=== PATIENT | female | born 1970 | race Caucasian/White ===

== ENCOUNTER 2020-05-30 10:38 | Outpatient (CLI) | payer BC, SELFPAY ==
--- NOTE | ~2020-05-30 | MM_ITS ---
EXAMINATION: MM screening [facility] BI w mima HISTORY: Screening TECHNIQUE: Craniocaudal and mediolateral oblique 3-D tomosynthesis images were obtained and synthetic 2-D images were generated. CAD analysis was submitted and interpreted. COMPARISON: Comparison to multiple prior studies sequentially, with oldest reviewed study dated 11/08. BREAST PARENCHYMAL COMPOSITION: The breasts are heterogeneously dense, which may obscure small masses . FINDINGS: There is no evidence of suspicious mass, calcification, or architectural distortion to sugg est malignancy in either breast. There has been no suspicious interval change. IMPRESSION: 1. No mammographic evidence of malignancy. 2. Recommend routine screening mammography in one year. BI-RADS Category 1: Negative Reviewed, dictated and finalized at location A. E OPERATOR
== END 2020-05-30 10:39 | disposition home or self-care (01) ==
PROVIDERS: PCP Physician Assistant; Visit Provider Obstetrics & Gynecology
DX: Z12.31 Encounter for screening mammogram for malignant neoplasm of breast (principal)
CPT/HCPCS: 77063; 77067

== ENCOUNTER 2020-09-07 07:00 | Emergency (ER) | payer BC, SELFPAY ==
--- NOTE | ~2020-09-07 | XR_ITS ---
EXAMINATION: XR chest 2V DATE: 09/07/2020 07:28 INDICATION: Shortness of breath. Palpitations. TECHNIQUE: Frontal and lateral views of the chest were obtained. COMPARISON: Chest single view 07/16/2003 FINDINGS: The chest demonstrates clear lungs without pneumonia, pleural effusion, or pneumothorax. Th e heart size is normal. IMPRESSION: 1. No acute cardiopulmonary disease. Reviewed, dictated and finalized at location A.
[2020-09-07 07:02] VITALS: BP 134/79; PULSE 92; RESP 20; TEMP 36.7; O2SAT 100
--- NOTE | 2020-09-07 07:16 | ECG_ITS ---
Measurements Intervals [place] Rate: 82 P: 52 VT: 145 QRS: 9 QRSD: 98 T: 75 QT: 368 QTc: 431 Interpretive Statements SINUS RHYTHM BORDERLINE T WAVE ABNORMALITY- HIGH LATERAL LEADS BASELINE ARTIFACT- I, II, III, AVR, AVF, V3-V6 BORDERLINE ECG Electronically Signed On 09-07-2020 7:22:07 CDT by Vernon Olguin D.O.
--- NOTE | 2020-09-07 07:24 | PC.NURSE ---
Pt to XRAY via stretcher, pt on tele monitor.
[2020-09-07 07:27] LABS: Basophils Percent Auto 0.6 % (0.2-1.2); Eosinophils Absolute Auto 0.2 K/mm3 (0-0.3); Eosinophils Percent Auto 3.1 % (0-4.4); Hematocrit 41.5 % (37.0-47.0); Hemoglobin 13.7 g/dL (12.0-15.0); Immature Granulocyte Absolute 0.04 K/mm3 (0.00-0.031); Immature Granulocyte Percent A 0.6 % (0-0.5); Lymphocytes Absolute Auto 1.66 K/mm3 (0.9-3.2); Lymphocytes Percent Auto 23.5 % (18.3-44.2); Mean Corpuscular Hemoglobin 31.6 pg (26-34); Mean Corpuscular Volume 95.6 fl (80-100); Mean Platelet Volume 8.7 fl (7.4-10.4); Monocytes Absolute Auto 0.4 K/mm3 (0.1-0.6); Monocytes Percent Auto 6.1 % (2.6-8.5); Neutrophils Absolute Auto 4.7 K/mm3 (1.3-6.7); Neutrophils Percent Auto 66.1 % (45.5-73.1); Platelet Count Result 167 k/mm3 (150-375); Red Blood Count 4.34 M/mm3 (4.2-5.4); Red Cell Distribution Width 12.5 % (11.5-14.5); White Blood Count 7.1 K/mm3 (4.5-10.0)
--- NOTE | 2020-09-07 07:38 | ED.ARRPALP ---
HPI - Arrhythmia/Palpitations General Chief Complaint: Arrhythmia/Palpitations Stated Complaint: Rapid HR. 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 Patient was driving and her heart rate went up to 150 according to her iWatch. History of SVT, status post ablation years ago, patient currently had Holter monitor placed on August 12. Patient reports having similar symptoms 1 week ago, did not get any phone call from her plant protection supervisor. to see if the Holter monitor showed something or not. Currently patient is asymptomatic. History of anxiety, depression, hypothyroidism. Patient does not smoke or drink or uses drugs. Denies any fever, chills, nausea, vomiting, chest pain, shortness of breath, back pain or headache. Complaining of a lot of stress. Related Data Home Medications Medication Instructions Recorded Confirmed levothyroxine 09/07/20 lorazepam 09/07/20 Allergies Allergy/AdvReac Type Severity Reaction Status Date / Time No Known Allergies Allergy Verified 09/07/20 07:05 Review of Systems Review of Systems: Narrative: CONSTITUTIONAL: Denies fever, chills, or sweats. EYES: Denies visual changes, redness, or discharge. ENT: Denies rhinorrhea, congestion, sore throat, or otalgia. CARDIOVASCULAR: Denies chest pain, palpitations, or edema. RESPIRATORY: Denies cough or dyspnea. GASTROINTESTINAL: Denies abdominal pain, nausea, vomiting, or diarrhea. GENITOURINARY: Denies dysuria or hematuria. SKIN: Denies rash or itching. MUSCULOSKELETAL: Denies back pain, joint pain, or myalgia. NEUROLOGIC: Denies headache, numbness, or weakness. PSYCHIATRIC: Denies anxiety or depression. PMFSH Family History Family History Other Diabetes mellitus Family history of lung cancer Social History Social History Smoking end date: 04/11/96 Alcohol intake: current Exam Narrative: Exam Narrative: General appearance: Well-developed, well-nourished Skin: Normal color Head: Normocephalic, nontraumatic Eyes: Clear conjunctiva ENT: Oropharynx normal, ears normal, nose normal Neck: Supple, nontender Chest and respiratory: Airway patent, no respiratory distress, no accessory muscle use, Holter monitor , left chest Heart: Regular rate/rhythm Abdomen: Soft, nontender, no organomegaly, quiet bowel sounds Vascular: Normal peripheral pulses, normal capillary refill. Musculoskeletal: Normal range of motion, nontender back Neurologic: Alert and oriented ?3, [employer]ATE[employer] is normal as tested, no gross motor deficit Course Course Emergency Course: Resolved Vital Signs Vital signs: Vital Signs Temperature 36.7 C 09/07/20 07:02 Pulse Rate 92 09/07/20 07:02 Respiratory Rate 20 09/07/20 07:02 Blood Pressure 134/79 09/07/20 07:02 Pulse Oximetry 100 09/07/20 07:02 Temperature 36.7 C 09/07/20 07:02 Pulse Rate 68 09/07/20 09:11 Respiratory Rate 12 09/07/20 09:11 Blood Pressure 110/72 09/07/20 09:11 Pulse Oximetry 100 09/07/20 09:11 MDM - Arrhythmia/Palpitations MDM Narrative Medical decision making narrative: Patient presents with intermittent palpitation, currently having a Holter monitor, did not receive any phone call from her plant protection supervisor about the possibility of any arrhythmia. History of depression. Anxiety, panic attack is my concern. Labs, chest x-ray, EKG, TSH ordered. Further plan to follow Differential Diagnosis Dif
[2020-09-07 07:39] LABS: Anion Gap 8 mmol/L (8-16); Blood Urea Nitrogen 11 mg/dL (7-17); Calcium 9.3 mg/dL (8.4-10.2); Carbon Dioxide 27 mmol/L (22-30); Chloride 103 mmol/L (98-107); Estimated CRCL calculation 88 ml/min; Estimated Glomerular Filt Rate > 60; Glucose 103 mg/dL (65-105); Potassium 3.9 mmol/L (3.4-5.0); Sodium 138 mmol/L (137-145)
[2020-09-07 07:50] LABS: Troponin I < 0.012 ng/mL (0.000-0.034)
[2020-09-07 08:00] LABS: Prothrombin Time 13.2 Seconds (11.1-14.7)
[2020-09-07 08:02] LABS: Partial Thromboplastin Time 28.5 SECONDS (22.3-36.8)
[2020-09-07 08:07] VITALS: BP 131/80; PULSE 69; RESP 12; O2SAT 100
[2020-09-07 09:11] VITALS: BP 110/72; PULSE 68; RESP 12; O2SAT 100
[2020-09-07 09:49] VITALS: BP 110/69; PULSE 56; RESP 12; O2SAT 98
== END 2020-09-07 09:52 | disposition home or self-care (01) ==
PROVIDERS: Emergency Provider Emergency Medicine; PCP Physician Assistant
DX: R00.2 Palpitations (principal); F41.9 Anxiety disorder, unspecified; F32.9 Major depressive disorder, single episode, unspecified; E03.9 Hypothyroidism, unspecified; Z87.891 Personal history of nicotine dependence; R94.31 Abnormal electrocardiogram [ECG] [EKG]
CPT/HCPCS: 36415; 71046; 80048; 84443; 84484; 85025; 85610; 85730; 93005; 99284

== ENCOUNTER → 2021-09-10 12:49 | Outpatient (CLI) | payer BC, SELFPAY ==
--- NOTE | ~2021-09-10 | MM_ITS ---
EXAMINATION: MM screening on[facility] BI w mima HISTORY: Screening mammogram TECHNIQUE: Craniocaudal and mediolateral oblique 3-D tomosynthesis images were obtained and synthetic 2-D images were generated. CAD analysis was submitted and interpreted. COMPARISON: , 04/17/2019 bilateral screening mammogram examinations BREAST PARENCHYMAL COMPOSITION: There are scattered areas of fibroglandular density. FINDINGS: There is no evidence of suspicious mass, calcification, or architectural distortion to sugg est malignancy in either breast. There has been no suspicious interval change. IMPRESSION: 1. No mammographic evidence of malignancy. 2. Recommend routine screening mammography in one year. BI-RADS Category 1: Negative Reviewed, dictated and finalized at location A.
== END ==
PROVIDERS: PCP Physician Assistant; Visit Provider Obstetrics & Gynecology
DX: Z12.31 Encounter for screening mammogram for malignant neoplasm of breast (principal)
CPT/HCPCS: 77063; 77067

== ENCOUNTER 2023-06-16 01:23 | Day surgery (SDC) | payer BC, SELFPAY ==
[2023-06-06 13:51] VITALS: BMI 27.3
--- NOTE | 2023-06-14 10:24 | SUR.PREOP ---
Patient called regarding upcoming procedure. Reviewed preop instructions, appointment times, and procedure prep.
[2023-06-16 11:13] VITALS: BP 132/75; PULSE 79; RESP 20; TEMP 36.5; O2SAT 100; BMI 27.3
[2023-06-16] MEDS: LACTATED RINGERS 1,000 ML 150 ML IV CONT (11:23)
--- NOTE | 2023-06-16 11:38 | P.PNAN_ITS ---
Anes - Initial Pre Proc Eval Procedure: Operation Date: 06/16/23 12:30 Proposed Procedures p Screening Colonoscopy - José Colón MD Date/Time: 06/16/23 11:38 Surgeon: José Colón MD Pre Op Diagnosis: neoplasm screening Patient Data Age: 53 Gender: F Height: 1.75 m Weight: 83.8 kg Last Vital Signs Temp 97.7 F 06/16/23 11:13 Pulse 79 06/16/23 11:13 Resp 20 06/16/23 11:13 BP 132/75 06/16/23 11:13 Pulse Ox 100 06/16/23 11:13 O2 Del Method Room Air 06/16/23 11:13 Allergies Allergy/AdvReac Type Severity Reaction Status Date / Time No Known Allergies Allergy Verified 06/16/23 11:08 Home Medications Medication Instructions Recorded Confirmed Type levothyroxine 112 mcg tablet 112 mcg PO DAILY 09/07/20 06/06/23 History Women's Multivitamin 1 tab-cap PO DAILY 06/06/23 06/06/23 History loratadine 10 mg tablet (Claritin) 10 mg PO DAILY PRN ALLERGIES 06/06/23 06/06/23 History lorazepam 1 mg tablet 1 mg PO BID PRN Anxiety 06/06/23 06/06/23 History Patient hx anesthesia problems: none Family hx anesthesia problems: none Results Review: All pre-operative results and documents have been reviewed as part of the pre- operative evaluation. PMFSH Family History Family History Other Diabetes mellitus Family history of lung cancer Social History Social History Smoking status: Never smoker Smoking end date: 04/11/96 Alcohol intake: current Substance use: never Substance use type: does not use Living arrangements: with family Spiritual care concerns: No Anes - Eval Final PreProcedure Day of Procedure 06/16/23 11:38 Patient weight: normal Heart: regular rate and rhythm Lungs: clear to auscultation Airway: Mallampati scale class II Neurological: alert and oriented Last oral intake: >/= 8 hours ASA classification: III Emergent: no Anesthetic plan: proceed Anesthesia type and monitoring: general GIVS and standard monitoring Results Review: All pre-operative results and documents have been reviewed as part of the pre- operative evaluation. Informed Consent: The patient's anesthetic plan and its attendant risks and benefits were discussed with the patient/family/POA. Questions were solicited and answers provided to the satisfaction of the patient/family/POA.
--- NOTE | 2023-06-16 11:42 | PM.HPGS ---
History of Present Illness History of Present Illness Consent: Risks, benefits, and alternatives have been discussed and questions answered. Patient agrees to proceed with procedure. Chief complaint: neoplasm screening Narrative: Samra Dunn is a 53 year old female here for first screening colonoscopy Review of Systems Constitutional: Constitutional: Denies headache(s) and Denies weakness Eyes: Eyes: Denies blurry vision ENT: Reports Normal hearing present, Denies headache(s) and Denies neck pain Cardiovascular: Cardiovascular: Denies chest pain and Denies dyspnea Respiratory: Respiratory: Denies dyspnea Gastrointestinal: Gastrointestinal: Reports no additional gastrointestinal complaints Genitourinary: Genitourinary: Denies dysuria Musculoskeletal: Musculoskeletal: Denies neck pain Integumentary/Breasts: Skin/Breast: Denies dry skin Neurologic: Reports Normal hearing present, Denies headache(s) and Denies weakness Psychiatric: Psychiatric: Denies anxiety Endocrine: Endocrine: Denies change in body appearance Hematologic/Lymphatic: Hematologic/Lymphatic: Denies easy bleeding Allergic/Immunologic: Allergic/Immunologic: Denies urticaria PMF Past Medical History Medical History (Updated 06/16/23 @ 11:43 by José Colón MD) Colon cancer screening Family History Family History Other Diabetes mellitus Family history of lung cancer Social History Social History Smoking status: Never smoker Smoking end date: 04/11/96 Alcohol intake: current Substance use: never Substance use type: does not use Living arrangements: with family Spiritual care concerns: No Meds Home Medications and Allergies Home Medications Medication Instructions Recorded Confirmed Type levothyroxine 112 mcg tablet 112 mcg PO DAILY 09/07/20 06/06/23 History Women's Multivitamin 1 tab-cap PO DAILY 06/06/23 06/06/23 History loratadine 10 mg tablet (Claritin) 10 mg PO DAILY PRN ALLERGIES 06/06/23 06/06/23 History lorazepam 1 mg tablet 1 mg PO BID PRN Anxiety 06/06/23 06/06/23 History Allergies Allergy/AdvReac Type Severity Reaction Status Date / Time No Known Allergies Allergy Verified 06/16/23 11:08 Vital Signs Vital Signs - 24 hr 06/16/23 11:13 Temperature 97.7 F Pulse Rate 79 Respiratory Rate 20 Blood Pressure 132/75 Pulse Oximetry 100 Oxygen Delivery Room Air Exam Const: General: comfortable and no acute distress HENMT: Face/Nose/Sinus: Normal nares present Eyes: General: appearance normal, both eyes and all related structures Neck: Neck: no JVD Resp: Auscultation: clear to auscultation bilaterally Cardio: Rate: regular rate Rhythm: regular rhythm GI: Inspection: non-distended GI Palp: Yes Soft to palpation Skin: General skin exam: normal color Neuro: General: gait normal Speech: normal speech Extrem: General: normal to inspection Psych: Mental Status: mental status grossly normal Assessment and Plan Assessment and plan (1) Colon cancer screening: Code(s): Z12.11 - Encounter for screening for malignant neoplasm of colon Status: Acute Assessment and Plan: colonoscopy
[2023-06-16 12:12] VITALS: BP 94/54; PULSE 83; RESP 17; O2SAT 100
[2023-06-16 12:22] VITALS: BP 118/76; PULSE 72; RESP 19; O2SAT 100
[2023-06-16 12:32] VITALS: BP 132/74; PULSE 79; RESP 20; O2SAT 100
--- NOTE | 2023-06-16 13:03 | SUR.PHASEII ---
Pt transportation called at arrival to post op. State they will be here at 1220. 1300 Pt transport called again. State estimated time of arrival is now 1315.
== END 2023-06-16 12:45 | disposition home or self-care (01) ==
PROVIDERS: PCP Physician Assistant; Visit Provider Internal Medicine Gastroenterology
PROC: 0DJD8ZZ Inspection of Lower Intestinal Tract, Via Natural or Artificial Opening Endoscopic (ICD-10-PCS; CPT 45378; principal; 2023-06-16 12:30)
DX: Z12.11 Encounter for screening for malignant neoplasm of colon (principal); K64.8 Other hemorrhoids; Z80.1 Family history of malignant neoplasm of trachea, bronchus and lung
CPT/HCPCS: 45378; J2001; J2704; J7120

== ENCOUNTER 2023-08-23 15:44 | Outpatient (CLI) | payer BC, SELFPAY ==
--- NOTE | ~2023-08-23 | MM_ITS ---
EXAMINATION: MM screening [facility] BI w m[facility] HISTORY: Screening mammogram TECHNIQUE: Craniocaudal and mediolateral oblique 3-D tomosynthesis images were obtained and synthetic 2-D images were generated. CAD analysis was submitted and interpreted. COMPARISON: 09/10/2021, 05/30/2020 bilateral screening mammogram examination BREAST PARENCHYMAL COMPOSITION: There are scattered areas of fibroglandular density. FINDINGS: There is no evidence of suspicious mass, calcification, or architectural distortion to sugg est malignancy in either breast. There has been no suspicious interval change. IMPRESSION: 1. No mammographic evidence of malignancy. 2. Recommend routine screening mammography in one year. BI-RADS Category 1: Negative Reviewed, dictated and finalized at location A.
== END 2023-08-23 15:45 ==
LOC: MICIMG 15:47
PROVIDERS: PCP Physician Assistant; Visit Provider Nurse Practitioner Obstetrics & Gynecology
DX: Z12.31 Encounter for screening mammogram for malignant neoplasm of breast (principal)
CPT/HCPCS: 77063; 77067